=== PATIENT | female | born 1950 | race Caucasian/White ===

== ENCOUNTER → 2016-10-18 | Outpatient (CLI) | payer BC ==
[~2016-10-18] MED LIST: ALPRAZOLAM PO; ALTACE PO; AUGMENTIN PO; AUGMENTIN875 MG PO; CILOXAN 0.3% O2.5 ML OS; CLOPIDOGREL75 MG PO; CRESTOR PO; FENOFIBRATE160 MG PO; FISH OIL 1,0001 CAP PO; FLEXERIL PO; HYDROCODON-ACE1 EAC4 PO; HYDROCODON-ACE1 EAC5 PO; IBUPROFEN PO; IBUPROFEN800 MG PO; KEFLEX PO; LANSOPRAZOLE30 MG PO; LORTAB 2.5/5001 TAB PO; LORTAB 7.5-5001 TAB PO; MOTRIN100 MG PO; OMEPRAZOLE40 M1 PO; PLAVIX PO; SILVADENE TOP; ULTRAM PO; WELCHOL625 MG PO; XANAX0.5 M1 PO
--- NOTE | ~2016-10-18 | MY29 ---
[facility] A Service of [facility] RADIOLOGY TEXT RESULTS PATIENT: NILSON MIRANDA LOCATION: [facility] : 52 UNIT #: [id number] AGE: [address]: Abiel Cuba MD SEX: F ORDER DR: [id number] [facility] [address] [place], [place] [address] [id number] O MR#: [id number] Acc #: [id number] NAME: NILSON MIRANDA : 1950 SEX: F STUDY DATE/TIME: 10/18/2016 11:08 UNIT: [facility] ROOM: STUDY DESCRIPTION: MY LUISA SCREENING W/ CAD BILAT Attending Physician: Abiel Cuba M.D. Referring Physician: Abiel Cuba M.D. Ordering Physician: Abiel Cuba M.D. Primary Care Physician: Abiel Cuba M.D. MEDICAL IMAGING REPORT This report is preliminary unless electronic signature is present EXAM Bilateral digital screening mammogram with CAD device. DATE OF EXAM 10/18/2016 HISTORY Routine screening. FINDINGS Digital imaging of each breast was completed utilizing a two-view examination of each breast in craniocaudal and mediolateral-oblique projections. Review and interpretation of digital mammograms include a second review in conjunction with FDA-approved CAD device. There is a normal parenchymal presentation bilaterally consistent with the patient's age. There are no breast masses imaged and no parenchymal asymmetry is visualized. There are no suspicious microcalcifications and I see no focal architectural disturbance. IMPRESSION Negative screening digital mammogram. One-year followup recommended. Patients over the age of 40 are entered into a reminder system with target due date for the next mammogram. A result letter will also be sent to the patient. BIRADS: 1 Negative. Dictated by... Naeem Downey M.D. [facility] A Service of [facility] RADIOLOGY TEXT RESULTS PATIENT: NILSON MIRANDA LOCATION: [facility] : 52 UNIT #: [id number] AGE: [address]: Abiel Cuba MD SEX: F ORDER DR: THIS IS AN ELECTRONICALLY VERIFIED REPORT Naeem Downey M.D. at 10/19/2016 2:37 PM MEGHA/joaquin TD: 10/18/2016 16:43 JOB #: [id number] MEDICAL IMAGING REPORT Page 1 of 1 COPY
--- NOTE | ~2016-10-18 | HM ---
Unit #: [id number] #: [id number] Patient: NILSON MIRANDA [id number] [address] [address] [id number] O MR#: [id number] NAME: NILSON MIRANDA : 1950 SEX: F STUDY DATE/TIME: UNIT: [facility] ROOM: STUDY DESCRIPTION: Holter Monitor Attending Physician: Abiel Cuba M.D. Referring Physician: Abiel Cuba M.D. Primary Care Physician: Abiel Cuba M.D. CARDIOLOGY REPORT EXAM Holter Monitor DATE APPLIED 10/18/2016 DATE SCANNED 10/21/[address] Cuba READ BY Dr. Javier Sung INDICATION Palpitations. COMMENTS 1. Underlying rhythm is normal sinus. Average heart rate is 79 per minute with a minimum recorded heart rate of 57 and maximum recorded heart rate of 117 beats per minute. 2. There were five isolated PVCs in 24 hours. No couplets or ventricular tachycardia noted. 3. There were two premature atrial contractions recorded in 24 hours without any runs of atrial tachycardia. 4. Thee is no significant slowing of the heart rate, sinus arrest or sinus pause. 5. The patient did not report any symptoms or activity diary. IMPRESSION 24 hour ambulatory monitoring is within normal limits with very rare PVCs and very rare PACs. Dictated by... Javier Sung M.D. AKU/chente TD: 10/22/2016 08:24 Unit #: [id number] #: [id number] Patient: NILSON MIRANDA JOB #: [id number] CARDIOLOGY REPORT Page 1 of 1 X Javier Sung MD HOLTER MONITOR REPORT
== END | disposition home or self-care (01) ==
LOC: CWCC 10:32
DX: Z12.31 Encounter for screening mammogram for malignant neoplasm of breast (principal); R00.2 Palpitations; I49.3 Ventricular premature depolarization; I49.1 Atrial premature depolarization
CPT/HCPCS: 93225; 93226; G0202